=== PATIENT | female | born 1940 | race Caucasian/White ===

== ENCOUNTER → 2017-02-05 | Outpatient (CLI) | payer MEDICARE, OTHER | END | disposition home or self-care (01) | LOC: CVU 11:30 | PROVIDERS: ATTEND Internal Medicine Cardiovascular Disease | DX: I73.9 Peripheral vascular disease, unspecified (principal); I10 Essential (primary) hypertension; R94.39 Abnormal result of other cardiovascular function study; Z87.891 Personal history of nicotine dependence | CPT/HCPCS: 93925 ==

== ENCOUNTER → 2017-02-19 | Outpatient (CLI) | payer MEDICARE, OTHER | END | disposition home or self-care (01) | LOC: CFH 11:42 | PROVIDERS: ATTEND Internal Medicine | DX: Z12.31 Encounter for screening mammogram for malignant neoplasm of breast (principal) | CPT/HCPCS: G0202 ==

== ENCOUNTER 2017-04-17 17:31 | Inpatient (IN) | payer MEDICARE, OTHER ==
[~2017-04-17] VITALS: Ht 170.2 cm; Wt 74.9 kg
[2017-04-17] MEDS ORDERED: ASPI-496 PO (18:21)
[2017-04-17] MEDS ORDERED: DIVA250T4 PO (18:21)
[2017-04-17] MEDS ORDERED: BP MED (18:21)
[2017-04-17] MEDS ORDERED: ATOR-2 PO (18:21)
[2017-04-17] MEDS ORDERED: CEFTRIAXONE PMX 1GM/50ML 50 ML ONE (18:24)
[2017-04-17] MEDS ORDERED: CEFTRIAXONE PMX 1GM/50ML 50 ML IVPB ONE (18:30)
[2017-04-17] MEDS ORDERED: SODIUM CHLORIDE 0.9% 1,000ML IVBOLUS ONE (18:30)
[2017-04-17 18:42] LABS: HEMATOCRIT 44.3 % (34.6-47.8); HEMOGLOBIN 14.4 g/dL (11.7-16.4); WHITE BLOOD COUNT 13.1 x10^3/uL (3.4-10)
[2017-04-17 18:54] LABS: ASPARTATE AMINO TRANSFERASE 14 U/L (15-37); BLOOD UREA NITROGEN 20 mg/dL (7-18)
[2017-04-17 19:24] LABS: IS PT STATUS REG ER OR PRE ER? YES
[2017-04-17] MEDS ORDERED: ATOR40TA PO (19:57)
[2017-04-17] MEDS ORDERED: FLUO20CA8 PO (19:57)
[2017-04-17] MEDS ORDERED: LOSA1TAB16 PO (19:57)
[2017-04-17] MEDS ORDERED: METO50TA82 PO (19:57)
[2017-04-17] MEDS ORDERED: SODIUM CHLORIDE 0.9%, 500ML IVBOLUS ONE (20:30)
[2017-04-17] MEDS ORDERED: TEMAZEPAM 15 MG CAPSULE PO PRN (21:00)
[2017-04-17] MEDS ORDERED: ENALAPRILAT 1.25 MG/ML, 2ML IVPush PRN (21:00)
[2017-04-17] MEDS ORDERED: ONDANSETRON 2MG/ML, 2ML IVPush PRN (21:00)
[2017-04-17] MEDS: SODIUM CHLORIDE 0.9% 1,000 ML IV SCH (22:51)
[2017-04-17] MEDS: CEFTRIAXONE PMX 1GM/50ML 50 ML IV SCH (22:51)
[2017-04-17 22:53] VITALS: BP 144/74
[2017-04-17] MEDS: DIVALPROEX 250 MG TABLET.DR PO SCH (23:25)
[2017-04-17] MEDS: ENOXAPARIN 40 MG/0.4 ML SQ SCH (23:25)
[2017-04-18 02:00] VITALS: BP 142/76
[2017-04-18 05:23] LABS: HEMATOCRIT 38.3 % (34.6-47.8); HEMOGLOBIN 12.6 g/dL (11.7-16.4); WHITE BLOOD COUNT 11.4 x10^3/uL (3.4-10)
[2017-04-18 05:30] LABS: BLOOD UREA NITROGEN 16 mg/dL (7-18)
[2017-04-18 08:12] VITALS: BP 95/60
[2017-04-18] MEDS: SODIUM CHLORIDE 0.9% 1,000 ML IV SCH ×3 (08:17→23:07)
[2017-04-18] MEDS: ACETAMINOPHEN 325 MG TABLET PO PRN (08:17)
[2017-04-18] MEDS: FLUOXETINE 20 MG CAPSULE PO SCH (08:17)
[2017-04-18] MEDS: DIVALPROEX 250 MG TABLET.DR PO SCH ×2 (08:17→20:59)
[2017-04-18] MEDS: ASPIRIN 81 MG TABLET EC PO SCH (08:17)
[2017-04-18] MEDS: METOPROLOL TARTRATE 50 MG TABLET PO SCH (09:00)
[2017-04-18] MEDS ORDERED: SODIUM CHLORIDE 0.9%, 500ML IVBOLUS ONE (11:00)
[2017-04-18 14:20] VITALS: BP 118/59
[2017-04-18 18:59] VITALS: BP 109/69
[2017-04-18] MEDS: CEFTRIAXONE PMX 1GM/50ML 50 ML IV SCH (22:55)
[2017-04-18] MEDS: ENOXAPARIN 40 MG/0.4 ML SQ SCH (22:55)
[2017-04-19 01:24] VITALS: BP 115/72
[2017-04-19 07:45] VITALS: BP 123/72
[2017-04-19] MEDS: ASPIRIN 81 MG TABLET EC PO SCH (09:30)
[2017-04-19] MEDS: METOPROLOL TARTRATE 50 MG TABLET PO SCH (09:30)
[2017-04-19] MEDS: ACETAMINOPHEN 325 MG TABLET PO PRN (09:30)
[2017-04-19] MEDS: FLUOXETINE 20 MG CAPSULE PO SCH (09:30)
[2017-04-19] MEDS: DIVALPROEX 250 MG TABLET.DR PO SCH ×2 (09:30→21:07)
[2017-04-19 12:00] VITALS: BP 117/71
[2017-04-19 19:54] VITALS: BP 146/78
[2017-04-19] MEDS: CEFTRIAXONE PMX 1GM/50ML 50 ML IV SCH (23:06)
[2017-04-19] MEDS: ENOXAPARIN 40 MG/0.4 ML SQ SCH (23:12)
[2017-04-20 00:40] VITALS: BP 124/74
[2017-04-20 09:15] VITALS: BP 108/61
[2017-04-20] MEDS: METOPROLOL TARTRATE 50 MG TABLET PO SCH (09:21)
[2017-04-20] MEDS: DIVALPROEX 250 MG TABLET.DR PO SCH ×2 (09:21→20:25)
[2017-04-20] MEDS: ASPIRIN 81 MG TABLET EC PO SCH (09:21)
[2017-04-20] MEDS: FLUOXETINE 20 MG CAPSULE PO SCH (09:21)
[2017-04-20] MEDS ORDERED: PHENAZOPYRIDINE 100 MG TABLET PO PRN (13:30)
[2017-04-20 13:49] VITALS: BP 103/56
[2017-04-20 20:01] VITALS: BP 125/74
[2017-04-20] MEDS: ENOXAPARIN 40 MG/0.4 ML SQ SCH (22:56)
[2017-04-20] MEDS: CEFTRIAXONE PMX 1GM/50ML 50 ML IV SCH (22:59)
[2017-04-21 01:46] VITALS: BP 131/77
[2017-04-21 06:10] LABS: HEMATOCRIT 35.2 % (34.6-47.8); HEMOGLOBIN 11.6 g/dL (11.7-16.4); WHITE BLOOD COUNT 5.1 x10^3/uL (3.4-10)
[2017-04-21 06:17] LABS: BLOOD UREA NITROGEN 15 mg/dL (7-18)
[2017-04-21 09:55] VITALS: BP 125/76
[2017-04-21] MEDS: ASPIRIN 81 MG TABLET EC PO SCH (09:55)
[2017-04-21] MEDS: DIVALPROEX 250 MG TABLET.DR PO SCH ×2 (09:55→20:27)
[2017-04-21] MEDS: FLUOXETINE 20 MG CAPSULE PO SCH (09:55)
[2017-04-21] MEDS: METOPROLOL TARTRATE 50 MG TABLET PO SCH (09:55)
[2017-04-21 15:16] VITALS: BP 106/65
[2017-04-21 19:09] VITALS: BP 137/67
[2017-04-21] MEDS: ENOXAPARIN 40 MG/0.4 ML SQ SCH (22:48)
[2017-04-21] MEDS: CEFTRIAXONE PMX 1GM/50ML 50 ML IV SCH (22:48)
[2017-04-21] MEDS: ACETAMINOPHEN 325 MG TABLET PO PRN (22:53)
[2017-04-22 01:21] VITALS: BP 131/77
[2017-04-22 06:00] VITALS: BP 136/82
[2017-04-22] MEDS: ASPIRIN 81 MG TABLET EC PO SCH (09:45)
[2017-04-22] MEDS: DIVALPROEX 250 MG TABLET.DR PO SCH ×2 (09:45→21:28)
[2017-04-22] MEDS: FLUOXETINE 20 MG CAPSULE PO SCH (09:45)
[2017-04-22] MEDS: METOPROLOL TARTRATE 50 MG TABLET PO SCH (09:45)
[2017-04-22 15:00] VITALS: BP 147/76
[2017-04-22] MEDS ORDERED: LIDOCAINE 1%, 20ML ONE (16:45)
[2017-04-22] MEDS ORDERED: POTASSIUM CHLORIDE 20 MEQ TAB.ER.PRT PO ONE (17:00)
[2017-04-22] MEDS ORDERED: FUROSEMIDE 40 MG/4 ML IV ONE (17:00)
[2017-04-22 18:31] VITALS: BP 131/71
[2017-04-22] MEDS: CEFTRIAXONE PMX 1GM/50ML 50 ML IV SCH (23:13)
[2017-04-22] MEDS: ENOXAPARIN 40 MG/0.4 ML SQ SCH (23:13)
[2017-04-23 01:28] VITALS: BP 133/80
[2017-04-23 05:55] LABS: BLOOD UREA NITROGEN 14 mg/dL (7-18)
[2017-04-23 07:40] VITALS: BP 148/80
[2017-04-23] MEDS: FLUOXETINE 20 MG CAPSULE PO SCH (08:17)
[2017-04-23] MEDS: DIVALPROEX 250 MG TABLET.DR PO SCH ×2 (08:17→22:03)
[2017-04-23] MEDS: ASPIRIN 81 MG TABLET EC PO SCH (08:17)
[2017-04-23] MEDS: METOPROLOL TARTRATE 50 MG TABLET PO SCH (08:17)
[2017-04-23 13:10] VITALS: BP 101/65
[2017-04-23] MEDS: ACETAMINOPHEN 325 MG TABLET PO PRN (16:09)
[2017-04-23] MEDS ORDERED: POTASSIUM CHLORIDE 20 MEQ TAB.ER.PRT PO ONE (17:00)
[2017-04-23] MEDS ORDERED: ACETAMINOPHEN 325 MG TABLET PO PRN (17:00)
[2017-04-23] MEDS ORDERED: FUROSEMIDE 40 MG/4 ML IV ONE (17:00)
[2017-04-23] MEDS: CEFTRIAXONE PMX 1GM/50ML 50 ML IV SCH (18:24)
[2017-04-23 18:53] VITALS: BP 110/68
[2017-04-23] MEDS: ENOXAPARIN 40 MG/0.4 ML SQ SCH (22:03)
[2017-04-24 02:49] VITALS: BP 117/67
[2017-04-24] MEDS ORDERED: ASPIRIN 81 MG TABLET EC PO SCH (06:00)
[2017-04-24 06:05] VITALS: BP 114/73
[2017-04-24 06:15] LABS: BLOOD UREA NITROGEN 17 mg/dL (7-18)
[2017-04-24] MEDS ORDERED: FUROSEMIDE 40 MG TABLET PO SCH (09:00)
[2017-04-24] MEDS: METOPROLOL TARTRATE 50 MG TABLET PO SCH (09:56)
[2017-04-24] MEDS: DIVALPROEX 250 MG TABLET.DR PO SCH (09:56)
[2017-04-24] MEDS: FLUOXETINE 20 MG CAPSULE PO SCH (09:56)
[2017-04-24] MEDS: CEFTRIAXONE PMX 1GM/50ML 50 ML IV SCH (11:20)
[2017-04-24] MEDS ORDERED: CEFT1FRO2 IV (11:57)
[2017-04-24] MEDS ORDERED: METO-93 PO (11:57)
== END 2017-04-24 14:25 | disposition home or self-care (01) | DRG 872 ==
LOC: ED 20:45 → EDIP 21:00 → 3NE 22:05
PROVIDERS: ADMIT Internal Medicine; ATTEND Internal Medicine
PROC: 0T9B70Z Drainage of Bladder with Drainage Device, Via Natural or Artificial Opening (ICD-10-PCS; principal; 2017-04-17)
PROC: 02HV33Z Insertion of Infusion Device into Superior Vena Cava, Percutaneous Approach (ICD-10-PCS; 2017-04-22)
PROC: B548ZZA Ultrasonography of Superior Vena Cava, Guidance (ICD-10-PCS; 2017-04-22)
DX: A41.51 Sepsis due to Escherichia coli [E. coli] (principal); N39.0 Urinary tract infection, site not specified; G40.909 Epilepsy, unspecified, not intractable, without status epilepticus; E44.1 Mild protein-calorie malnutrition; R65.20 Severe sepsis without septic shock; B96.89 Other specified bacterial agents as the cause of diseases classified elsewhere; B96.20 Unspecified Escherichia coli [E. coli] as the cause of diseases classified elsewhere; E78.5 Hyperlipidemia, unspecified; I10 Essential (primary) hypertension; R32 Unspecified urinary incontinence; F32.9 Major depressive disorder, single episode, unspecified; R39.15 Urgency of urination; Z68.25 Body mass index [BMI] 25.0-25.9, adult
CPT/HCPCS: 36415; 36569; 71010; 76937; 77001; 80048; 80053; 80164; 81001; 83605; 83735; 84484; 85025; 87040; 87077; 87086; 87186; 93005; 96365; J0696; J1650; J1940; J2405; J3490; C1751; J7030; J7040

== ENCOUNTER → 2018-06-24 | Outpatient (CLI) | payer MEDICARE ==
[~2018-06-24] MED LIST: ASPI-496 PO; ATOR-2 PO; ATOR40TA PO; BP MED; CEFT1FRO2 IV; DIVA250T4 PO; FLUO20CA8 PO; LOSA1TAB19 PO; METO-93 PO; METO50TA82 PO
== END | disposition home or self-care (01) ==
LOC: CFH 14:16
PROVIDERS: ATTEND Physician Assistant
DX: I34.0 Nonrheumatic mitral (valve) insufficiency (principal); I10 Essential (primary) hypertension; E78.5 Hyperlipidemia, unspecified; Z87.891 Personal history of nicotine dependence
CPT/HCPCS: 93306

== ENCOUNTER 2018-10-20 07:08 | Emergency (ER) | payer MEDICARE ==
[~2018-10-20] VITALS: Ht 167.6 cm; Wt 72.8 kg
[2018-10-20 07:11] VITALS: BP 138/69
[2018-10-20] MEDS ORDERED: ASPIRIN 81 MG TABLET CHEW PO ONE (07:30)
[2018-10-20] MEDS ORDERED: ASPIRIN 81 MG TABLET EC ONE (07:31)
--- NOTE | 2018-10-20 07:37 | NUR ---
DENISE-Derrick IS AT THE BEDSIDE FOR ASSESSMENT
[2018-10-20] MEDS ORDERED: LORazepam 1MG TABLET ONE (07:46)
[2018-10-20 07:50] LABS: BASOPHILS # (AUTO) 0.03 x10^3/uL (0-0.1); BASOPHILS % (AUTO) 0 % (0-1); EOSINOPHILS % (AUTO) 1 % (1-7); LYMPHOCYTES # (AUTO) 1.66 x10^3/uL (1-3.4); LYMPHOCYTES % (AUTO) 18 % (22-44); MD NO; MEAN CORPUSCULAR HEMOGLOBIN 25.7 pg (27.0-34.8); MEAN CORPUSCULAR HGB CONC 32.7 g/dL (32.4-35.8); MEAN CORPUSCULAR VOLUME 78.7 fL (80-100); MONOCYTES # (AUTO) 0.64 x10^3/uL (0.2-0.8); MONOCYTES % (AUTO) 7 % (2-9); NEUTROPHILS # (AUTO) 7.02 x10^3/uL (1.8-6.8); NEUTROPHILS % (AUTO) 74 % (42-75); PLATELET COUNT 260 x10^3/uL (130-400); RED BLOOD COUNT 6.02 x10^6/uL (3.82-5.3); RED CELL DISTRIBUTION WIDTH 14.9 % (9.6-15.2)
[2018-10-20] MEDS ORDERED: SODIUM CHLORIDE FLUSH 10ML SYR IVF ONE (08:00)
[2018-10-20] MEDS ORDERED: LORazepam 1MG TABLET PO ONE (08:00)
[2018-10-20 08:02] LABS: ALANINE AMINOTRANSFERASE 25 U/L (12-78); ALBUMIN 3.8 g/dL (3.4-5.0); ANION GAP 10 mmol/L (5-15); CALCIUM 9.5 mg/dL (8.5-10.1); CHLORIDE 108 mmol/L (98-107); CREATININE 0.89 mg/dL (0.55-1.02)
[2018-10-20 08:06] LABS: ALKALINE PHOSPHATASE 58 U/L (45-117); BILIRUBIN,TOTAL 0.5 mg/dL (0.2-1.0); FREE T4 (FREE THYROXINE) 1.29 ng/dL (0.76-1.46); TOTAL PROTEIN 7.2 g/dL (6.4-8.2); TROPONIN I < 0.015 ng/mL (0.000-0.045)
[2018-10-20 08:47] LABS: MICROSCOPIC AUTO
[2018-10-20 08:52] LABS: CULTURE INDICATED? YES
== END 2018-10-20 10:15 | disposition home or self-care (01) ==
LOC: ED 10:04
DX: R07.89 Other chest pain (principal); N30.00 Acute cystitis without hematuria; F41.1 Generalized anxiety disorder; R06.4 Hyperventilation; G40.909 Epilepsy, unspecified, not intractable, without status epilepticus; E78.00 Pure hypercholesterolemia, unspecified; Z87.891 Personal history of nicotine dependence
CPT/HCPCS: 36415; 71046; 80053; 81001; 84439; 84443; 84484; 85025; 87086; 93005; 99284

== ENCOUNTER → 2018-12-14 | Outpatient (CLI) | payer MEDICARE | END | disposition home or self-care (01) | LOC: RAD 14:26 | PROVIDERS: ATTEND Nurse Practitioner Primary Care | DX: M25.771 Osteophyte, right ankle (principal); M17.11 Unilateral primary osteoarthritis, right knee; M79.89 Other specified soft tissue disorders ==

== ENCOUNTER 2019-04-12 08:39 | Outpatient (CLI) | payer MEDICARE, MEDICAID | END 2019-04-12 23:59 | disposition home or self-care (01) | LOC: CFH 08:39 | PROVIDERS: ATTEND Internal Medicine Cardiovascular Disease | DX: R07.89 Other chest pain (principal) | CPT/HCPCS: 78452; 93017; A9502; J2785 ==

== ENCOUNTER → 2019-07-20 | Outpatient (CLI) | payer MEDICARE ==
[~2019-07-20] MED LIST changes: +GADOTERATE 7.5 MMOL/15 ML VIAL ONE
== END | disposition home or self-care (01) ==
LOC: CFH 09:14
PROVIDERS: ATTEND Specialist
DX: J32.2 Chronic ethmoidal sinusitis (principal); J32.0 Chronic maxillary sinusitis; G40.901 Epilepsy, unspecified, not intractable, with status epilepticus; H70.91 Unspecified mastoiditis, right ear; Z87.891 Personal history of nicotine dependence
CPT/HCPCS: 70553; A9575

== ENCOUNTER 2019-07-22 12:19 | Outpatient (CLI) | payer MEDICARE, MEDICAID ==
[~2019-07-22 12:19] MED LIST changes: -GADOTERATE 7.5 MMOL/15 ML VIAL ONE
== END 2019-07-22 23:59 | disposition home or self-care (01) ==
LOC: CARD 12:19
PROVIDERS: ATTEND Specialist
DX: G40.901 Epilepsy, unspecified, not intractable, with status epilepticus (principal); Z88.2 Allergy status to sulfonamides; Z88.6 Allergy status to analgesic agent; Z88.5 Allergy status to narcotic agent; Z87.891 Personal history of nicotine dependence
CPT/HCPCS: 95819

== ENCOUNTER 2019-09-19 12:26 | Outpatient (CLI) | payer MEDICARE, MEDICAID ==
[~2019-09-19 12:26] MED LIST changes: +FLUO20CA23 PO; -FLUO20CA8 PO
[2019-10-07] MEDS ORDERED: ACET-2065 PO (15:37)
[2019-10-07] MEDS ORDERED: ROSU20TA2 PO (15:37)
[2019-10-07] MEDS ORDERED: FLUO20CA19 PO (15:37)
[2019-10-07] MEDS ORDERED: LEVE500T53 PO (15:37)
[2019-10-07] MEDS ORDERED: LOSA1TAB19 PO (15:37)
[2019-10-07] MEDS ORDERED: ASPI-496 PO (15:37)
[2019-10-07] MEDS ORDERED: METO200T47 PO (15:37)
[2019-10-09] MEDS ORDERED: SENN-193 PO (09:18)
== END 2019-09-19 23:59 | disposition home or self-care (01) ==
LOC: CFH 12:26
PROVIDERS: ATTEND Registered Nurse
DX: I50.32 Chronic diastolic (congestive) heart failure (principal); G47.34 Idiopathic sleep related nonobstructive alveolar hypoventilation; Z77.090 Contact with and (suspected) exposure to asbestos
CPT/HCPCS: 71250

== ENCOUNTER → 2020-03-15 | Outpatient (CLI) | payer MEDICARE, MEDICAID ==
[~2020-03-15] MED LIST changes: +ACET-2065 PO; +FLUO20CA19 PO; +LEVE500T53 PO; +METO200T47 PO; +ROSU20TA2 PO; +SENN-193 PO
== END | disposition home or self-care (01) ==
LOC: CFH 07:00
PROVIDERS: ATTEND Internal Medicine Cardiovascular Disease
DX: I34.0 Nonrheumatic mitral (valve) insufficiency (principal)
CPT/HCPCS: 93306